=== PATIENT | male | born 1970 | race Caucasian/White ===

== ENCOUNTER 2017-03-18 12:03 | Emergency (ER) | payer MEDICAID, OTHER ==
[~2017-03-18] VITALS: Ht 198.1 cm; Wt 152.0 kg
[2017-03-18 12:32] VITALS: BP 139/84
== END 2017-03-18 14:10 | disposition home or self-care (01) ==
LOC: ER 12:03
DX: L03.115 Cellulitis of right lower limb (principal); E11.9 Type 2 diabetes mellitus without complications

== ENCOUNTER 2017-06-13 14:50 | Inpatient (IN) | payer MEDICAID ==
[~2017-06-13] VITALS: Ht 198.1 cm; Wt 154.3 kg
[2017-06-13 16:04] LABS: Basophils # (auto) 0.1 uL; Eosinophils # (auto) 0.4 uL; Eosinophils % (auto) 6.8 % (0.0-7.0); Hematocrit 41.4 % (41.0-53.0); Hemoglobin 14.7 g/dL (13.5-17.5); Lymphocytes # (auto) 1.4 uL; Lymphocytes % (auto) 22.8 % (10.0-50.0); Mean Corpuscular Hemoglobin 31.6 pg (28.0-32.0); Mean Corpuscular Hgb Conc. 35.4 g/dL (32.0-36.0); Mean Corpuscular Volume 89.2 fL (80.0-100.0); Mean Platelet Volume 8.6 fL (7.4-10.4); Monocytes # (auto) 0.5 uL; Monocytes % (auto) 8.7 % (0.0-12.0); Neutrophils # (auto) 3.8 uL; Neutrophils % (auto) 60.7 % (37.0-80.0); Platelet Count (auto) 195 10^3/uL (140-450); Red Cell Distribution Width 13.6 % (11.6-16.0); White Blood Cell 6.3 10^3/uL (4.4-10.8)
[2017-06-13 16:19] LABS: Albumin 3.2 g/dL (3.4-5.0); BUN/Creatinine Ratio 13.3; Bilirubin, Total 0.3 mg/dL (0.2-1.0); Calcium 8.7 mg/dL (8.5-10.1); Total Protein 7.8 g/dL (6.4-8.2)
[2017-06-13] MEDS ORDERED: SODIUM CHLORIDE 0.9% 1,000 ML IVB ONE (18:52)
[2017-06-13] MEDS ORDERED: HYDROcodone-ACET 10/325MG TAB PO ONE ×2 (19:00→19:30)
[2017-06-13] MEDS ORDERED: CLINDAMYCIN 600MG IV 50 ML IV ONE (19:00)
[2017-06-13] MEDS ORDERED: TETANUS-DIPTH-ACEL PERTUSSIS 0.5ML SYRG IM ONE (19:30)
[2017-06-13 19:47] LABS: INR 0.93 (0.9-1.15); Partial Thromboplastin Time 29.5 sec (22.64-33.71); Prothrombin Time 10.1 sec (9.37-12.3)
[2017-06-13 20:52] LABS: Urine Bilirubin Negative (Negative); Urine Blood Negative /uL (Negative); Urine Color Yellow (Yellow); Urine Glucose 4+ mg/dL (Normal); Urine Ketone Negative (Negative); Urine Nitrite Negative (Negative); Urine RBC <1 /hpf (0 - 3); Urine Squamous Epithelial Cell FEW /hpf (<5); Urine Urobilinogen Normal (Negative); Urine pH 5.5 (5.0-8.0)
[2017-06-13 22:00] VITALS: BP 122/67
[2017-06-13] MEDS ORDERED: TEMAZEPAM 15 MG CAP PO PRN (22:00)
[2017-06-13] MEDS ORDERED: ONDANSETRON HCL 4 MG/2 ML VIAL IV PRN (22:00)
[2017-06-13] MEDS ORDERED: MORPHINE SULF INJ 2 MG/ML SYRINGE 1ML IV PRN (22:00)
[2017-06-13] MEDS ORDERED: DEXTROSE (50%) 50ML SYRG IV PRN (22:00)
[2017-06-13] MEDS: SODIUM CHLORIDE 0.9% 1,000 ML IV SCH (22:48)
[2017-06-13] MEDS: FAMOTIDINE 20 MG TAB PO SCH (22:48)
[2017-06-14] MEDS: InsuLIN REG 1unit/0.01ml Soln (100units/ml) SC SCH ×4 (01:02→17:44)
[2017-06-14] MEDS: HYDROcodone-ACET 5/325MG TAB PO PRN ×3 (01:03→19:40)
[2017-06-14] MEDS: CLINDAMYCIN 600MG IV 50 ML IV SCH ×4 (04:51→22:10)
[2017-06-14 05:00] VITALS: BP 131/70
[2017-06-14 06:04] LABS: Basophils # (auto) 0.1 uL; Basophils % (auto) 0.7 % (0.0-2.0); Eosinophils # (auto) 0.5 uL; Eosinophils % (auto) 7.2 % (0.0-7.0); Hematocrit 39.8 % (41.0-53.0); Hemoglobin 13.5 g/dL (13.5-17.5); Lymphocytes # (auto) 2.8 uL; Lymphocytes % (auto) 38.1 % (10.0-50.0); Mean Corpuscular Hemoglobin 30.5 pg (28.0-32.0); Mean Corpuscular Hgb Conc. 33.8 g/dL (32.0-36.0); Mean Corpuscular Volume 90.1 fL (80.0-100.0); Mean Platelet Volume 8.5 fL (7.4-10.4); Monocytes # (auto) 0.6 uL; Monocytes % (auto) 8.9 % (0.0-12.0); Neutrophils # (auto) 3.3 uL; Neutrophils % (auto) 45.1 % (37.0-80.0); Nucleated Red Blood Cells % 0.1 %; Platelet Count (auto) 190 10^3/uL (140-450); Red Cell Distribution Width 13.7 % (11.6-16.0); White Blood Cell 7.2 10^3/uL (4.4-10.8)
[2017-06-14] MEDS: ACCU-CHEK COMFORT CURVE STRIP VI SCH ×4 (06:05→17:44)
[2017-06-14 06:36] LABS: Albumin 2.9 g/dL (3.4-5.0); Calcium 8.2 mg/dL (8.5-10.1); Potassium 3.8 mmol/L (3.5-5.1)
[2017-06-14 06:39] LABS: BUN/Creatinine Ratio 13.8
[2017-06-14 06:46] LABS: Bilirubin, Total 0.2 mg/dL (0.2-1.0); Total Protein 6.8 g/dL (6.4-8.2)
[2017-06-14] MEDS ORDERED: GABA-497 PO (07:51)
[2017-06-14] MEDS ORDERED: METF-370 PO (07:51)
[2017-06-14 09:00] VITALS: BP 106/58
[2017-06-14] MEDS: FAMOTIDINE 20 MG TAB PO SCH ×2 (09:36→22:10)
[2017-06-14] MEDS: ENOXAPARIN SOD 40 MG/0.4 ML SYRINGE SC SCH (09:36)
[2017-06-14] MEDS: SODIUM CHLORIDE 0.9% 1,000 ML IV SCH ×2 (10:17→22:19)
[2017-06-14 13:00] VITALS: BP 123/76
[2017-06-14] MEDS ORDERED: cefTRIAXone 1GM/50ML D5W 50 ML IV ONE (16:15)
[2017-06-14 17:00] VITALS: BP 122/82
[2017-06-15] VITALS (8 sets, daily range): BP systolic 109–135; BP diastolic 74–82
[2017-06-15] MEDS: InsuLIN REG 1unit/0.01ml Soln (100units/ml) SC SCH ×4 (00:33→17:41)
[2017-06-15] MEDS: HYDROcodone-ACET 5/325MG TAB PO PRN ×2 (03:09→20:36)
[2017-06-15] MEDS: ACCU-CHEK COMFORT CURVE STRIP VI SCH ×4 (06:00→17:08)
[2017-06-15] MEDS: CLINDAMYCIN 600MG IV 50 ML IV SCH ×3 (06:18→22:44)
[2017-06-15] MEDS: ACETAMINOPHEN 325 MG TAB PO PRN (06:31)
[2017-06-15 07:11] LABS: BUN/Creatinine Ratio 13.5; Calcium 8.2 mg/dL (8.5-10.1); Potassium 3.6 mmol/L (3.5-5.1)
[2017-06-15] MEDS: cefTRIAXone 1GM/50ML D5W 50 ML IV SCH (09:00)
[2017-06-15] MEDS: ENOXAPARIN SOD 40 MG/0.4 ML SYRINGE SC SCH (10:00)
[2017-06-15] MEDS: FAMOTIDINE 20 MG TAB PO SCH ×2 (10:00→22:44)
[2017-06-15] MEDS: SODIUM CHLORIDE 0.9% 1,000 ML IV SCH ×2 (11:17→21:47)
[2017-06-15] MEDS: ASCORBIC ACID 500 MG TAB PO SCH (22:43)
[2017-06-16] MEDS: InsuLIN REG 1unit/0.01ml Soln (100units/ml) SC SCH ×4 (00:37→17:34)
[2017-06-16] MEDS: HYDROcodone-ACET 5/325MG TAB PO PRN ×3 (01:36→20:13)
[2017-06-16 05:00] VITALS: BP 129/82
[2017-06-16] MEDS: CLINDAMYCIN 600MG IV 50 ML IV SCH ×3 (05:03→21:36)
[2017-06-16] MEDS: SODIUM CHLORIDE 0.9% 1,000 ML IV SCH (05:06)
[2017-06-16] MEDS: ACCU-CHEK COMFORT CURVE STRIP VI SCH ×4 (05:55→17:33)
[2017-06-16 08:00] VITALS: BP 116/69
[2017-06-16 09:00] VITALS: BP 116/69
[2017-06-16] MEDS: cefTRIAXone 1GM/50ML D5W 50 ML IV SCH (09:20)
[2017-06-16] MEDS: ENOXAPARIN SOD 40 MG/0.4 ML SYRINGE SC SCH (09:21)
[2017-06-16] MEDS: FAMOTIDINE 20 MG TAB PO SCH ×2 (09:21→21:36)
[2017-06-16] MEDS: MULTIPLE VITAMIN TAB PO SCH (09:21)
[2017-06-16] MEDS: ASCORBIC ACID 500 MG TAB PO SCH ×2 (09:21→21:37)
[2017-06-16 12:51] VITALS: BP 118/68
[2017-06-16] MEDS ORDERED: ceFAZolin 1GM VL ONE (15:38)
[2017-06-16] MEDS ORDERED: LIDOCAINE 2%HCL (LOCAL ANESTH.) INJ 20ML MDV ONE (15:40)
[2017-06-16] MEDS ORDERED: fentaNYL CITRATE 100 MCG/2 ML VL ONE (15:49)
[2017-06-16] MEDS ORDERED: PROPOFOL 10 MG/ML 20 ML IV ONE (15:53)
[2017-06-16] MEDS ORDERED: LABETALOL HCL 5 MG/ML 4ML SYRINGE IV PRN (16:30)
[2017-06-16] MEDS ORDERED: ACCU-CHEK COMFORT CURVE STRIP VI ONE (16:30)
[2017-06-16] MEDS ORDERED: ONDANSETRON HCL 4 MG/2 ML VIAL IV ONE (16:30)
[2017-06-16] MEDS ORDERED: fentaNYL CITRATE 100 MCG/2 ML VL IV ONE (17:00)
[2017-06-16 20:00] VITALS: BP 115/70
[2017-06-16] MEDS: HYDROmorphone HCL 2 MG/ML VL IV PRN (22:04)
[2017-06-17] MEDS: ACCU-CHEK COMFORT CURVE STRIP VI SCH ×3 (00:35→11:41)
[2017-06-17] MEDS: InsuLIN REG 1unit/0.01ml Soln (100units/ml) SC SCH ×3 (00:36→11:41)
[2017-06-17] MEDS ORDERED: KETOROLAC TROMETH 30 MG/ML 1ML VIAL IV PRN (00:45)
[2017-06-17] MEDS: HYDROcodone-ACET 5/325MG TAB PO PRN (05:14)
[2017-06-17 05:36] VITALS: BP 105/69
[2017-06-17] MEDS: CLINDAMYCIN 600MG IV 50 ML IV SCH ×2 (05:39→14:00)
[2017-06-17] MEDS: SODIUM CHLORIDE 0.9% 1,000 ML IV SCH (05:49)
[2017-06-17 06:19] LABS: Basophils # (auto) 0 uL; Basophils % (auto) 0.5 % (0.0-2.0); Eosinophils # (auto) 0.3 uL; Eosinophils % (auto) 4.7 % (0.0-7.0); Hematocrit 43.9 % (41.0-53.0); Lymphocytes # (auto) 2.7 uL; Lymphocytes % (auto) 41.4 % (10.0-50.0); Mean Corpuscular Hemoglobin 30.8 pg (28.0-32.0); Mean Corpuscular Hgb Conc. 34.3 g/dL (32.0-36.0); Mean Corpuscular Volume 89.8 fL (80.0-100.0); Mean Platelet Volume 8.4 fL (6.9-10.8); Monocytes # (auto) 0.7 uL; Neutrophils # (auto) 2.8 uL; Neutrophils % (auto) 42.4 % (37.0-80.0); Nucleated Red Blood Cells % 0.1 %; Platelet Count (auto) 213 10^3/uL (140-450); Red Cell Distribution Width 13.6 % (11.8-14.3); White Blood Cell 6.6 10^3/uL (4.4-10.8)
[2017-06-17 06:47] LABS: BUN/Creatinine Ratio 13.6; Calcium 8.8 mg/dL (8.5-10.1); Potassium 4.1 mmol/L (3.5-5.1)
[2017-06-17] MEDS: cefTRIAXone 1GM/50ML D5W 50 ML IV SCH (08:35)
[2017-06-17 09:00] VITALS: BP 118/79
[2017-06-17] MEDS: FAMOTIDINE 20 MG TAB PO SCH (10:07)
[2017-06-17] MEDS: MULTIPLE VITAMIN TAB PO SCH (10:07)
[2017-06-17] MEDS: ENOXAPARIN SOD 40 MG/0.4 ML SYRINGE SC SCH (10:08)
[2017-06-17] MEDS: ASCORBIC ACID 500 MG TAB PO SCH (10:08)
[2017-06-17] MEDS: ACETAMINOPHEN 325 MG TAB PO PRN (11:51)
[2017-06-17 12:00] VITALS: BP 109/65
[2017-06-17] MEDS ORDERED: CLIN1CAP4 PO (14:03)
[2017-06-17] MEDS ORDERED: METF-370 PO (14:03)
[2017-06-17] MEDS ORDERED: SACC250C PO (14:03)
== END 2017-06-17 16:30 | disposition home or self-care (01) | DRG 380 ==
LOC: ER 14:50 → OVERFLOW 14:51 → WEST WING 22:55
PROVIDERS: ADMIT Nurse Practitioner; ATTEND Internal Medicine
PROC: 0JBQ0ZZ Excision of Right Foot Subcutaneous Tissue and Fascia, Open Approach (ICD-10-PCS; principal; 2017-06-16 15:50)
DX: E11.621 Type 2 diabetes mellitus with foot ulcer (principal); L97.519 Non-pressure chronic ulcer of other part of right foot with unspecified severity; E11.65 Type 2 diabetes mellitus with hyperglycemia; L03.031 Cellulitis of right toe; E87.1 Hypo-osmolality and hyponatremia; E66.01 Morbid (severe) obesity due to excess calories; E11.622 Type 2 diabetes mellitus with other skin ulcer; G47.33 Obstructive sleep apnea (adult) (pediatric); Z80.42 Family history of malignant neoplasm of prostate; Z82.49 Family history of ischemic heart disease and other diseases of the circulatory system; Z83.3 Family history of diabetes mellitus; Z91.14 Patient's other noncompliance with medication regimen; Z91.19 Patient's noncompliance with other medical treatment and regimen; Z68.39 Body mass index [BMI] 39.0-39.9, adult
CPT/HCPCS: 36415; 71010; 73630; 73718; 80048; 80053; 80061; 81001; 82962; 83036; 83605; 83735; 85025; 85610; 85730; 87040; 87081; 87205; 90715; 93926; 94660; 94761; 96361; 96365; J0690; J0696; J1815; J1885; J2704; J3490

== ENCOUNTER 2017-08-04 20:19 | Emergency (ER) | payer MEDICAID ==
[~2017-08-04] VITALS: Ht 198.1 cm; Wt 161.0 kg
[~2017-08-04 20:19] MED LIST: CLIN1CAP4 PO; GABA-497 PO; METF-370 PO; SACC250C PO
[2017-08-04 20:42] VITALS: BP 157/89
[2017-08-04 21:27] LABS: Urine RBC None Seen /hpf (0 - 3)
[2017-08-04 21:37] LABS: Basophils # (auto) 0.1 uL; Basophils % (auto) 0.6 % (0.0-2.0); Eosinophils # (auto) 0.3 uL; Eosinophils % (auto) 3.5 % (0.0-7.0); Hematocrit 43.5 % (41.0-53.0); Hemoglobin 15.4 g/dL (13.5-17.5); Lymphocytes # (auto) 2.8 uL; Lymphocytes % (auto) 30.4 % (10.0-50.0); Mean Corpuscular Hemoglobin 31.3 pg (28.0-32.0); Mean Corpuscular Hgb Conc. 35.3 g/dL (32.0-36.0); Mean Corpuscular Volume 88.7 fL (80.0-100.0); Mean Platelet Volume 9.1 fL (6.9-10.8); Monocytes # (auto) 0.7 uL; Monocytes % (auto) 7.9 % (0.0-12.0); Neutrophils # (auto) 5.3 uL; Neutrophils % (auto) 57.6 % (37.0-80.0); Nucleated Red Blood Cells % 0.2 %; Platelet Count (auto) 182 10^3/uL (140-450); Red Cell Distribution Width 13.5 % (11.8-14.3); White Blood Cell 9.2 10^3/uL (4.4-10.8)
[2017-08-04 21:42] LABS: Urine Bilirubin Negative (Negative); Urine Blood Negative /uL (Negative); Urine Color Yellow (Yellow); Urine Glucose 4+ mg/dL (Normal); Urine Ketone Negative (Negative); Urine Nitrite Negative (Negative); Urine Squamous Epithelial Cell FEW /hpf (<5); Urine Urobilinogen Normal (Negative); Urine pH 5.5 (5.0-8.0)
[2017-08-04 22:02] LABS: Albumin 3.6 g/dL (3.4-5.0); BUN/Creatinine Ratio 12.8; Bilirubin, Total 0.5 mg/dL (0.2-1.0); Calcium 8.7 mg/dL (8.5-10.1); Potassium 3.9 mmol/L (3.5-5.1); Total Protein 8.3 g/dL (6.4-8.2)
== END 2017-08-05 00:23 | disposition left against medical advice (07) ==
LOC: ER 20:19
DX: M79.674 Pain in right toe(s) (principal); Z53.21 Procedure and treatment not carried out due to patient leaving prior to being seen by health care provider
CPT/HCPCS: 36415; 73660; 80053; 81001; 82010; 82962; 85025

== ENCOUNTER 2017-09-03 12:50 | Emergency (ER) | payer MEDICAID ==
[~2017-09-03] VITALS: Ht 198.1 cm; Wt 151.0 kg
[2017-09-03 14:55] VITALS: BP 139/81
[2017-09-03 14:58] LABS: Basophils # (auto) 0.1 uL; Basophils % (auto) 0.8 % (0.0-2.0); Eosinophils # (auto) 0.3 uL; Eosinophils % (auto) 2.4 % (0.0-7.0); Hematocrit 40.6 % (41.0-53.0); Hemoglobin 14.1 g/dL (13.5-17.5); Lymphocytes # (auto) 2.1 uL; Lymphocytes % (auto) 14.6 % (10.0-50.0); Mean Corpuscular Hemoglobin 30.8 pg (28.0-32.0); Mean Corpuscular Hgb Conc. 34.8 g/dL (32.0-36.0); Mean Corpuscular Volume 88.6 fL (80.0-100.0); Mean Platelet Volume 8.7 fL (6.9-10.8); Monocytes # (auto) 1.2 uL; Monocytes % (auto) 8.3 % (0.0-12.0); Neutrophils # (auto) 10.7 uL; Neutrophils % (auto) 73.9 % (37.0-80.0); Platelet Count (auto) 174 10^3/uL (140-450); Red Cell Distribution Width 13.1 % (11.8-14.3); White Blood Cell 14.5 10^3/uL (4.4-10.8)
[2017-09-03 15:04] LABS: Urine Bilirubin Negative (Negative); Urine Blood Negative /uL (Negative); Urine Color Yellow (Yellow); Urine Glucose 4+ mg/dL (Normal); Urine Ketone 1+ (Negative); Urine Nitrite Negative (Negative); Urine RBC 2 /hpf (0 - 3); Urine Squamous Epithelial Cell FEW /hpf (<5); Urine Urobilinogen Normal (Negative)
[2017-09-03 15:21] LABS: Albumin 3.2 g/dL (3.4-5.0); BUN/Creatinine Ratio 13.1; Calcium 8.6 mg/dL (8.5-10.1); Potassium 4.4 mmol/L (3.5-5.1)
[2017-09-03 15:24] LABS: Bilirubin, Total 0.5 mg/dL (0.2-1.0); Total Protein 8.2 g/dL (6.4-8.2)
[2017-09-03] MEDS ORDERED: SODIUM CHLORIDE 0.9% 1,000 ML IV ONE (15:40)
[2017-09-03] MEDS ORDERED: cefTRIAXone 1GM/10ml IVPUSH 10 ML IV ONE (15:45)
== END 2017-09-03 16:59 | disposition home or self-care (01) ==
LOC: ER 13:00
DX: R22.0 Localized swelling, mass and lump, head (principal); B00.9 Herpesviral infection, unspecified; E11.9 Type 2 diabetes mellitus without complications; I10 Essential (primary) hypertension; E44.1 Mild protein-calorie malnutrition; Z68.38 Body mass index [BMI] 38.0-38.9, adult
CPT/HCPCS: 36415; 80053; 81001; 85025; 96365; 99284; J7030

== ENCOUNTER 2017-10-04 06:40 | Emergency (ER) | payer MEDICAID ==
[~2017-10-04] VITALS: Ht 198.1 cm; Wt 147.9 kg
[~2017-10-04 06:40] MED LIST changes: -GABA-497 PO; +GABA300C10 PO
[2017-10-04 09:35] VITALS: BP 139/86
[2017-10-04 10:31] LABS: Potassium 3.6 mmol/L (3.5-5.1)
[2017-10-04 10:35] LABS: Albumin 3.7 g/dL (3.4-5.0); BUN/Creatinine Ratio 13.7; Calcium 8.6 mg/dL (8.5-10.1)
[2017-10-04 10:37] LABS: Bilirubin, Total 0.7 mg/dL (0.2-1.0); Total Protein 8.2 g/dL (6.4-8.2)
== END 2017-10-04 10:05 | disposition home or self-care (01) ==
LOC: ER 06:40
DX: S50.862A Insect bite (nonvenomous) of left forearm, initial encounter (principal); I10 Essential (primary) hypertension; E11.9 Type 2 diabetes mellitus without complications; G89.29 Other chronic pain; M54.9 Dorsalgia, unspecified; Z79.899 Other long term (current) drug therapy; W57.XXXA Bitten or stung by nonvenomous insect and other nonvenomous arthropods, initial encounter; Y93.89 Activity, other specified; Y92.89 Other specified places as the place of occurrence of the external cause; Y99.8 Other external cause status
CPT/HCPCS: 36415; 80053

== ENCOUNTER 2017-10-31 14:19 | Emergency (ER) | payer MEDICAID ==
[~2017-10-31] VITALS: Ht 198.1 cm; Wt 145.1 kg
[2017-10-31 14:36] VITALS: BP 142/93
[2017-10-31] MEDS ORDERED: InsuLIN REG 1unit/0.01ml Soln (100units/ml) IV ONE (19:45)
[2017-10-31] MEDS ORDERED: SODIUM CHLORIDE 0.9% 1,000 ML IV ONE (19:45)
[2017-10-31 20:57] LABS: Basophils # (auto) 0 uL; Basophils % (auto) 0.3 % (0.0-2.0); Eosinophils # (auto) 0.2 uL; Eosinophils % (auto) 2.2 % (0.0-7.0); Hematocrit 38.4 % (41.0-53.0); Hemoglobin 13.4 g/dL (13.5-17.5); Lymphocytes # (auto) 2.5 uL; Lymphocytes % (auto) 24.8 % (10.0-50.0); Mean Corpuscular Hemoglobin 30.9 pg (28.0-32.0); Mean Corpuscular Hgb Conc. 34.8 g/dL (32.0-36.0); Mean Corpuscular Volume 88.6 fL (80.0-100.0); Monocytes # (auto) 0.9 uL; Monocytes % (auto) 8.7 % (0.0-12.0); Neutrophils # (auto) 6.6 uL; Nucleated Red Blood Cells % 0.1 %; Platelet Count (auto) 219 10^3/uL (140-450); Red Blood Cells 4.33 10^6/uL (4.5-5.90); Red Cell Distribution Width 13.4 % (11.8-14.3); White Blood Cell 10.3 10^3/uL (4.4-10.8)
[2017-10-31 21:10] LABS: Albumin 3.4 g/dL (3.4-5.0); Bilirubin, Total 0.3 mg/dL (0.2-1.0); Calcium 8.3 mg/dL (8.5-10.1); Total Protein 8.1 g/dL (6.4-8.2)
== END 2017-10-31 22:10 | disposition home or self-care (01) ==
LOC: ER 14:19
DX: H92.01 Otalgia, right ear (principal); E11.65 Type 2 diabetes mellitus with hyperglycemia; E11.621 Type 2 diabetes mellitus with foot ulcer; E11.69 Type 2 diabetes mellitus with other specified complication; L03.031 Cellulitis of right toe; I10 Essential (primary) hypertension
CPT/HCPCS: 36415; 73700; 80053; 82962; 85025; 96361; 96374; 99285; J1815; J7030

== ENCOUNTER 2017-11-30 08:12 | Emergency (ER) | payer MEDICAID ==
[~2017-11-30] VITALS: Ht 198.1 cm; Wt 147.4 kg
[2017-11-30 08:36] VITALS: BP 132/83
== END 2017-11-30 10:05 | disposition home or self-care (01) ==
LOC: ER 08:12
DX: L02.11 Cutaneous abscess of neck (principal); I10 Essential (primary) hypertension; E11.9 Type 2 diabetes mellitus without complications